=== PATIENT | male | born 1990 | race Two or more races ===

== ENCOUNTER 2021-01-04 20:58 | Emergency (ER) | payer OTHER ==
[~2021-01-04] VITALS: Ht 175.3 cm; Wt 68.0 kg
--- NOTE | 2021-01-04 21:02 | NUR ---
PT BIBSELF C/O LEFT SIDED HEAD PAIN AND "LIQUID" COMING FROM NOSE S/P FALL. PT [id number] BREATHING EVENLY AND UNLABORED. PER PT, HE TRIPPED AND HIT THE LEFT SIDE OF HIS HEAD OF THE DOORFRAME AND THEN NOTICED THAT A WHITE LIQUID WAS COMING FROM HIS NOSE. MD AT BEDSIDE. PT ATTACHED TO MONITOR AND POX. PT GIVEN CALL LIGHT WITHIN REACH
--- NOTE | 2021-01-04 21:31 | NUR ---
TAKEN TO RADIOLOGY
--- NOTE | 2021-01-04 21:44 | NUR ---
RETURN FROM RADIOLOGY
--- NOTE | 2021-01-04 22:11 | NUR ---
Patient discharged to home in stable condition. Written and verbal after care instructions given. Patient verbalizes understanding of instruction. PT ambulatory with a steady gait
[2021-01-04 22:13] VITALS: BP 130/78
== END 2021-01-04 22:11 | disposition home or self-care (01) ==
LOC: ER 21:10
DX: S09.8XXA Other specified injuries of head, initial encounter (principal); J34.89 Other specified disorders of nose and nasal sinuses; R51.9 Headache, unspecified; W22.8XXA Striking against or struck by other objects, initial encounter; Y93.89 Activity, other specified; Y92.89 Other specified places as the place of occurrence of the external cause; Y99.8 Other external cause status
CPT/HCPCS: 70450-TC; 70486-TC; 72125-TC

== ENCOUNTER 2021-11-21 22:19 | Emergency (ER) | payer OTHER ==
[~2021-11-21] VITALS: Ht 175.3 cm; Wt 68.0 kg
[2021-11-21 22:36] VITALS: BP 131/73
--- NOTE | 2021-11-21 22:45 | NUR ---
TO ER BED 12. BIBSELF C/O FLUID LEAKING OUT OF NOSE. -BLOOD. CONNECTED TO MONITOR. NOT IN RESPIRATORY DISTRESS. VSS. AWAITING MD PHIPPS
[2021-11-22] MEDS ORDERED: OXYMETAZOLINE HCL NASAL SPRAY 30 ML BOTTLE NS ONE ×2 (00:23→00:30)
== END 2021-11-22 00:30 | disposition home or self-care (01) ==
LOC: ER 22:21
DX: J34.89 Other specified disorders of nose and nasal sinuses (principal)

== ENCOUNTER 2023-06-19 01:25 | Emergency (ER) | payer OTHER ==
[~2023-06-19] VITALS: Ht 175.3 cm; Wt 74.8 kg
[2023-06-19] MEDS ORDERED: DIAZEPAM 5 MG TABLET PO ONE (02:00)
[2023-06-19] MEDS ORDERED: OXYMETAZOLINE HCL NASAL SPRAY 30 ML BOTTLE NS ONE ×2 (02:25→02:30)
[2023-06-19 04:20] VITALS: BP 132/82; TEMP 98; O2SAT 99
== END 2023-06-19 04:21 | disposition home or self-care (01) ==
LOC: ER 01:27
DX: R04.0 Epistaxis (principal)